=== PATIENT | female | born 2000 | race Caucasian/White ===

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

== ENCOUNTER → 2024-04-04 | Outpatient (CLI) | payer OTHER ==
--- NOTE | 2024-04-05 20:03 | XR ---
EXAMINATION TYPE: XR abdomen 2V DATE OF EXAM: 04/05/2024 CLINICAL DATA: 23-year-old female [id number], lower abdominal pain, [facility] COMPARISON: None FINDINGS: Lung bases are clear. No evidence for free intraperitoneal air. No dilated small bowel or air-fluid levels. Scattered air and stool seen throughout the colon extending distally into the rectum. Mild to moderat e stool burden. No suspicious calcifications identified. IMPRESSION: 1. Mild to moderate stool burden. 2. No evidence of bowel obstruction or free intraperitoneal air.
== END | disposition home or self-care (01) ==
LOC: RADXRYALE 15:00
PROVIDERS: ATTEND Physician Assistant Medical
DX: R10.30 Lower abdominal pain, unspecified (principal)
CPT/HCPCS: 74019

== ENCOUNTER → 2024-04-20 | Day surgery (SDC) | payer OTHER ==
[2024-04-18 09:03] VITALS: BMI 36.8
[~2024-04-20] MED LIST: PROPOFOL 10 MG/ML 20 ML VIAL IV ONE
[2024-04-20] MEDS: LACTATED RINGERS 1,000 ML IV SCH (13:35)
[2024-04-20 13:40] VITALS: TEMP 97.9
[2024-04-20] MEDS: IV FLUID CONTINUATION 1,000 ML IV ONE ×2 (13:41→15:07)
--- NOTE | 2024-04-20 15:05 | P.PCN ---
Date of Procedure: 04/20/24 Procedure(s) Performed: BRIEF HISTORY: Patient is a 23-year-old pleasant white female scheduled for an elective colonoscopy as a part of evaluation of intermittent rectal bleeding. She does have some family history of colon cancer diagnosed in her first cousin at age 31 and her maternal uncle at age 60. PROCEDURE PERFORMED: Colonoscopy. PREOPERATIVE DIAGNOSIS: Rectal bleeding and family history of colon cancer. IV sedation per Anesthesia. PROCEDURE: After informed consent was obtained, the patient, was brought into the endoscopy unit. IV sedation was administered by Anesthesia under continuous monitoring. Digital rectal examination was normal. Initially the Olympus CF-160 flexible video colonoscope was then inserted in the rectum, gradually advanced into the cecum without any difficulty. Careful examination was performed as the scope was gradually being withdrawn. Ileocecal valve and the appendiceal orifice were visualized and appeared normal. Prep was excellent. Mucosa of the cecum, ascending colon, transverse colon, descending colon, sigmoid colon, and rectum appeared normal. Retroflexion was performed in the rectum and no lesions were seen. The patient tolerated the procedure well. IMPRESSION: Normal-appearing colon from rectum to cecum with no evidence of colorectal neoplasia. RECOMMENDATIONS: Findings of this examination were discussed with the patient as well as her family. She was advised to have repeat screening colonoscopy every 5 years because of the family history of colon cancer.
[2024-04-20 15:26] VITALS: RESP 16
[2024-04-20 16:17] VITALS: BP 117/72; PULSE 85
== END ==
LOC: ORWHC2ENDO 12:41
PROVIDERS: ATTEND Internal Medicine Gastroenterology
DX: K62.5 Hemorrhage of anus and rectum (principal); Z80.0 Family history of malignant neoplasm of digestive organs; K21.9 Gastro-esophageal reflux disease without esophagitis; J45.909 Unspecified asthma, uncomplicated
CPT/HCPCS: 81025; 45378; J2704